=== PATIENT | male | born 1950 | race Caucasian/White ===

== ENCOUNTER → 2016-10-19 | Outpatient (CLI) | payer MEDICARE, MEDICAID ==
--- NOTE | 2016-10-25 08:57 | RSPPFT ---
DATE OF PROCEDURE: 10/19/16 COMMENTS: Spirometry shows FVC of 2.6 predicted 3.6, FEV1 of 1.1 predicted 2.8, FEV1/FVC ratio 41% predicted 80%. Post-bronchodilator FVC increases to 2.9 and FEV1 to 1.3. IMPRESSION: On the basis of the above, patient has an obstructive lung defect with responsiveness to acutely inhaled bronchodilator.
== END ==
LOC: HRSP 11:54
PROVIDERS: ATTEND Internal Medicine
DX: J44.9 Chronic obstructive pulmonary disease, unspecified (principal)
CPT/HCPCS: 94060

== ENCOUNTER 2017-11-24 10:39 | Inpatient (IN) ==
[2017-11-24 11:34] LABS: Baso % (Auto) 0.3 % (0.0-2.0); Eos # (Auto) 0.2 th/mm3 (0.0-0.4); Eos % (Auto) 1.7 % (0.0-4.0); Hematocrit 31.4 % (39.0-51.0); Hemoglobin 10.9 gm/dL (13.0-17.0); Lymph # (Auto) 0.7 th/mm3 (1.0-4.8); Lymph % (Auto) 6.6 % (9.0-44.0); Mean Corpuscular HGB Conc 34.8 % (32.0-36.0); Mean Corpuscular Hemoglobin 31.7 pg (27.0-34.0); Mean Platelet Volume 6.4 fL (7.0-11.0); Mono # (Auto) 1.1 th/mm3 (0.0-0.9); Mono % (Auto) 11.1 % (0.0-8.0); Neut # (Auto) 8.1 th/mm3 (1.8-7.7); Neut % (Auto) 80.3 % (16.0-70.0); Platelet Count 355 th/mm3 (150-450); Red Blood Count 3.45 mil/mm3 (4.50-5.90); White Blood Count 10.1 th/mm3 (4.0-11.0)
[2017-11-24 11:48] LABS: Activated Partial Thrombo Time 28.5 sec (24.3-30.1); Prothrombin Time 10.2 sec (9.8-11.6)
--- NOTE | 2017-11-24 11:49 | XR ---
EXAM DATE: 11/24/2017 10:56 AM EDT AGE/SEX: 67 years / Male INDICATIONS: . Shortness of breath. CLINICAL DATA: This is the patient's initial encounter. Patient reports that signs and symptoms have been present for 3 days and indicates a pain score of 0/10. MEDICAL/SURGICAL HISTORY: Hypertension. Carcinoma, prostatic. None. COMPARISON: [facility], XR CHEST PA AND LAT, 06/15/2017. . FINDINGS: Apparent mass infrahilar region on the right. Possible nodularity left upper lobe The heart and pulmonary vascularity are normal. Left seventh rib fracture. No pleural effusion. No pneumothorax. CONCLUSION: Abnormal chest. CT scan of the chest is suggested with contrast. Electronically signed by: Keyur Blevins MD 11/24/2017 11:48 AM EDT
[2017-11-24 11:56] LABS: Alanine Aminotransferase 22 U/L (12-78); Albumin 2.8 g/dL (3.4-5.0); Anion Gap 10 meq/L (5-15); Aspartate Aminotransferase 13 U/L (15-37); Blood Urea Nitrogen 11 mg/dL (7-18); Calcium 8.5 mg/dL (8.5-10.1); Carbon Dioxide 26.6 meq/L (21.0-32.0); Chloride 93 meq/L (98-107); Glomerular Filtration Rate Greater Than 89 mL/min (>89); Glucose,Random 101 mg/dL (74-106); Magnesium 2.1 mg/dL (1.5-2.5); Potassium 4.1 meq/L (3.5-5.1); Sodium 130 meq/L (136-145)
[2017-11-24 12:00] LABS: Alkaline Phosphatase 112 U/L (45-117); Total Protein 7.8 g/dL (6.4-8.2)
[2017-11-24 12:07] LABS: Creatine Kinase 38 U/L (39-308)
--- NOTE | 2017-11-24 14:34 | CT ---
EXAM DATE: 11/24/2017 1:37 PM EDT AGE/SEX: 67 years / Male INDICATIONS: Cough for eight weeks. CLINICAL DATA: This is the patient's initial encounter. Patient reports that signs and symptoms have been present for 2 months and indicates a pain score of 5/10. MEDICAL/SURGICAL HISTORY: Peripheral artery disease. Hypertension. Carcinoma, prostatic. None. RADIATION DOSE: 11.40 CTDI (mGy) COMPARISON: . TECHNIQUE: Volumetric scanning was performed using a multi-row detector CT scanner during bolus infu tierra of 75 ml Omnipaque 350 (iohexol) nonionic water-soluble contrast as a single exam dose. The valerio a was post processed with a variety of visualization algorithms including full volume maximum intensi ty projection and sliding thin slab reformation. Using automated exposure control and adjustment of t he mA and/or kV according to patient size, radiation dose was kept as low as reasonably achievable to obtain optimal diagnostic quality images. DICOM format image data is available electronically for r eview and comparison. FINDINGS: Study is abnormal in this patient with a history of carcinoma prostate. There is a 1.6 cm left apical lung mass medially adjacent this is 2 smaller 5 to 7 mm lung masses with pleural reaction in the lef t upper lobe. Smaller 5 to 7 mm nodules are seen in the lower lobes. On the right there is a dominant pleural-based 2.8 cm mass in the right upper lobe anteriorly. Scatte red nodules are seen in the right base. Review of bone windows reveals minimal sclerosis in the T4 or T5 vertebral body suspicious for metast atic disease. There is no axillary or mediastinal adenopathy. Large 3 cm left thyroid mass is noted. CONCLUSION: 1. Findings would be consistent with widespread metastatic disease, most likely prostate by history. Mass anteriorly in the right lung could easily be biopsied for pathology and origin with minimal ris k of pneumothorax. Electronically signed by: Keyur Blevins MD 11/24/2017 2:33 PM EDT
--- NOTE | 2017-11-24 14:56 | ECG ---
Date Performed: 11/24/2017 Time Performed: 11:47:03 PTAGE: 67 years EKG: Sinus rhythm INCOMPLETE RIGHT BUNDLE BRANCH BLOCK Nonspecific T wave changes. BORDERLINE ECG NO PREVIOUS TRACING DOCTOR: Fariba Rojas Interpretating Date/Time 11/24/2017 14:56:18
--- NOTE | 2017-11-24 15:51 | ED ---
HPI General Chief complaint: Weakness Stated complaint: Medical Time Seen by Provider: 11/24/17 10:40 Source: patient, EMS and old records reviewed Mode of arrival: EMS Limitations: no limitations History of Present Illness HPI Narrative: The patient is a 33-year-old male with history of prostate cancer , chemotherapy last treatment in mid October and radiation therapy, HTN and PAD, presenting with complaint of exertional dyspnea that has been getting worse for the past 8 weeks cough weakness and pain on left lower extremity. Patient states that he has been having problems talking the past 8 months and he is voice sounds hoarse. He admits to productive cough and today he had a slight hemoptysis. Also complained of left lower leg pain to the point that he was having difficulty walking. Patient states that he had a CT of his chest approximately 3 months ago and was told that everything looked okay. I was not able to find a previous CT of his chest within our system. Onset (ago): week(s) (8) Duration: progressively worsening Related Data Home Medications Medication Instructions Recorded Confirmed aspirin 325 mg PO DAILY 11/24/17 11/24/17 lisinopril-hydrochlorothiazide 1 tab PO DAILY 11/24/17 11/24/17 lorazepam 0.5 mg BUCCAL DAILY 11/24/17 11/24/17 metoprolol succinate 25 mg PO DAILY 11/24/17 11/24/17 umeclidinium-vilanterol [Anoro 1 inh INHALATION Q24H 11/24/17 11/24/17 Ellipta] Allergies Allergy/AdvReac Type Severity Reaction Status Date / Time No Known Allergies Allergy Verified 11/24/17 10:56 Review of Systems ROS: all other systems reviewed are negative Constitutional Reports anorexia, Reports fatigue, Denies fever(s), Reports poor appetite, Reports weakness and Reports weight loss Respiratory Denies chest congestion, Reports hemoptysis, Denies pain with cough, Reports dyspnea, Reports dyspnea on exertion and Denies wheezing [facility] Medical History Medical History History of chemotherapy (Acute) History of radiation therapy (Acute) Hypertension (Acute) PAD (peripheral artery disease) (Acute) Prostate cancer (Acute) Social History Social History Substance History: No History of Abuse Second Hand Smoke Exposure: No Smoking Status: Former smoker Tobacco Type: Cigarettes How Often Do You Have a Drink Containing Alcohol: Monthly or less Recent Travel in [facility] [[email or web address] within the Last 8 Weeks: No Recent Out of Country Travel within the Last 8 Weeks: No Immunization History Tetanus Immunization: Unsure Hx Influenza Vaccine This Season: No Exam Narrative Exam Narrative: GENERAL: Alert and oriented in no distress underweight unkept SKIN: Focused skin assessment warm/dry. Poor turgor venous stasis changes in lower extremities. HEAD: Atraumatic. Normocephalic. Bitemporal wasting EYES: Pupils equal and round. No scleral icterus. No injection or drainage. ENT: No nasal bleeding or discharge. Mucous membranes pink and moist. NECK: Trachea midline. No JVD. CARDIOVASCULAR: Regular rate and rhythm. No murmur appreciated. RESPIRATORY: No accessory muscle use. Clear to auscultation. Breath sounds equal bilaterally. GASTROINTESTINAL: Abdomen soft, non-tender, nondistended. Hepatic and splenic margins not palpable. MUSCULOSKELETAL: No obvious deformities. No clubbing. No cyanosis. No edema. Tenderness to palpation over the ventral aspect of the left foot. Pulses present but faint. Sensation intact. NEUROLOGICAL: Normal gait. Awake and alert. No obvious cranial nerve deficits. Motor grossly within normal limits. Normal speech. PSYCHIATRIC: Appropriate mood and affect; insight and judgment normal. Course Reevaluation(s) Reevaluation #1: Discussed chest x-ray findings with the patient we will going to obtain a CT angios to rule out pulmonary embolism versus metastatic disease. Time: 13:01 Reevaluation #2: Patient is resting comfortably requesting some coffee stable vitals O2 saturation 99% room air Time: 16:00 Consultations Consultation #1: Dr. Braga him educational therapist consulted and recommends admission for further evaluation of the patient's lung masses Time: 15:45 Initial Documented Vital Signs Pulse Rate 96 H 11/24/17 10:56 Last Documented Vital Signs Temperature 97.4 F L 11/24/17 10:59 Pulse Rate 94 H 11/24/17 17:00 Respiratory Rate 14 11/24/17 17:00 Blood Pressure 147/68 H 11/24/17 17:00 Pulse Oximetry 96 11/24/17 17:00 Medical Decision Making MDM Narrative Medical decision making narrative: Patient with several intrathoracic masses suggestive of metastatic disease from primary prostate cancer. Discuss with oncology that recommends admission for further evaluation of his symptoms. Medical Screen Exam Complete: Yes Emergency Medical Condition: Yes Medical Records Medical records reviewed: Yes I reviewed the patient's medical records. Lab Data Lab results reviewed: Yes I reviewed the patient's lab results. Result diagrams: 11/24/17 11:15 11/24/17 11:15 Lab Results 11/24/17 11/24/17 11/24/17 Range/Units 11:15 11:15 11:15 WBC 10.1 (4.0-11.0) th/mm3 RBC 3.45 L (4.50-5.90) mil/mm3 Hgb 10.9 L (13.0-17.0) gm/dL Hct 31.4 L (39.0-51.0) % MCV 91.0 (80.0-100.0) fL MCH 31.7 (27.0-34.0) pg MCHC 34.8 (32.0-36.0) % RDW 13.0 (11.6-17.2) % Plt Count 355 (150-450) th/mm3 MPV 6.4 L (7.0-11.0) fL Neut % (Auto) 80.3 H (16.0-70.0) % Lymph % (Auto) 6.6 L (9.0-44.0) % Jay % (Auto) 11.1 H (0.0-8.0) % Eos % (Auto) 1.7 (0.0-4.0) % Baso % (Auto) 0.3 (0.0-2.0) % Neut # (Auto) 8.1 H (1.8-7.7) th/mm3 Lymph # (Auto) 0.7 L (1.0-4.8) th/mm3 Jay # (Auto) 1.1 H (0.0-0.9) th/mm3 Eos # (Auto) 0.2 (0.0-0.4) th/mm3 Baso # (Auto) 0.0 (0.0-0.2) th/mm3 WBC Differential . Differential Comment Auto diff final PT 10.2 (9.8-11.6) sec INR 1.0 Ratio APTT 28.5 (24.3-30.1) sec Sodium 130 L (136-145) meq/L Potassium 4.1 (3.5-5.1) meq/L Chloride 93 L (98-107) meq/L Carbon Dioxide 26.6 (21.0-32.0) meq/L Anion Gap 10 (5-15) meq/L BUN 11 (7-18) mg/dL Creatinine 0.83 (0.60-1.30) mg/dL Estimated GFR Greater than 89 (>89) mL/min Random Glucose 101 (74-106) mg/dL Lactic Acid (0.4-2.0) mmol/L Calcium 8.5 (8.5-10.1) mg/dL Magnesium 2.1 (1.5-2.5) mg/dL Total Bilirubin 0.3 (0.2-1.0) mg/dL AST 13 L (15-37) U/L ALT 22 (12-78) U/L Alkaline Phosphatase 112 (45-117) U/L Total Creatine Kinase 38 L (39-308) U/L Troponin I Less than 0.02 L (0.02-0.05) ng/mL Total Protein 7.8 (6.4-8.2) g/dL Albumin 2.8 L (3.4-5.0) g/dL 11/24/17 Range/Units 11:15 WBC (4.0-11.0) th/mm3 RBC (4.50-5.90) mil/mm3 Hgb (13.0-17.0) gm/dL Hct (39.0-51.0) % MCV (80.0-100.0) fL MCH (27.0-34.0) pg MCHC (32.0-36.0) % RDW (11.6-17.2) % Plt Count (150-450) th/mm3 MPV (7.0-11.0) fL Neut % (Auto) (16.0-70.0) % Lymph % (Auto) (9.0-44.0) % Jay % (Auto) (0.0-8.0) % Eos % (Auto) (0.0-4.0) % Baso % (Auto) (0.0-2.0) % Neut # (Auto) (1.8-7.7) th/mm3 Lymph # (Auto) (1.0-4.8) th/mm3 Jay # (Auto) (0.0-0.9) th/mm3 Eos # (Auto) (0.0-0.4) th/mm3 Baso # (Auto) (0.0-0.2) th/mm3 WBC Differential Differential Comment PT (9.8-11.6) sec INR Ratio APTT (24.3-30.1) sec Sodium (136-145) meq/L Potassium (3.5-5.1) meq/L Chloride (98-107) meq/L Carbon Dioxide (21.0-32.0) meq/L Anion Gap (5-15) meq/L BUN (7-18) mg/dL Creatinine (0.60-1.30) mg/dL Estimated GFR (>89) mL/min Random Glucose (74-106) mg/dL Lactic Acid 1.4 (0.4-2.0) mmol/L Calcium (8.5-10.1) mg/dL Magnesium (1.5-2.5) mg/dL Total Bilirubin (0.2-1.0) mg/dL AST (15-37) U/L ALT (12-78) U/L Alkaline Phosphatase (45-117) U/L Total Creatine Kinase (39-308) U/L Troponin I (0.02-0.05) ng/mL Total Protein (6.4-8.2) g/dL Albumin (3.4-5.0) g/dL Imaging Data Radiologist's impression: Chest X-Ray 11/24/17 10:56 CONCLUSION: Abnormal chest. CT scan of the chest is suggested with contrast. Chest CTA 11/24/17 13:30 CONCLUSION: 1. Findings would be consistent with widespread metastatic disease, most likely prostate by history. Mass anteriorly in the right lung could easily be biopsied for pathology and origin with minimal risk of pneumothorax. ECG Data Attestation: I personally reviewed and interpreted this ECG as follows: Interpretation: Sinus rhythm incomplete right bundle branch block. Heart rate 86 bpm NC interval 133 ms, QTc [address]-T wave abnormalities. No signs of acute ischemia. Discharge Plan Discharge Disposition Patient Disposition: 30 Still Patient Discharge Condition Condition: Fair Discharge Details Diagnosis: Metastatic neoplastic disease, Prostate cancer, Dyspnea Physicians Team ED Provider: Jonathan Ferris Primary Care Provider: Keyur Saldana Attending Provider: Darlene Lee Other Providers: Yazmin Braga Discharge Interventions Interventions: ED Discharge Assessment Last Done: 11/24/17 18:01 Vital Signs Last Done: 11/24/17 14:00 Status ED Status: Left Department Discharge Information Discharge Date/Time: 11/24/17 18:04
[2017-11-24] MEDS ORDERED: Sod Chloride 0.9% Inj 1,000 ML IV.SIG ONE (16:00)
--- NOTE | 2017-11-24 16:45 | P.HPIM ---
History of Present Illness Primary Care Physician: Keyur Saldana DO Chief Complaint: Shortness of breath on exertion, hemoptysis History of Present Illness: This patient is a 67-year-old male with a diagnosis of hypertension prostate cancer diagnosed 8 weeks ago status post chemotherapy and radiation in October 2017. The patient also has peripheral arterial disease. He presented to our emergency department today with complaints of exertional dyspnea that has continued to get worse over the past 8 weeks. He also has a a cough with productive sputum. He has also been having on and off hemoptysis over the past week. His symptoms continue to get worse and he came into our emergency department today for evaluation. He has been having difficulty walking and hoarseness of his voice that started a couple of weeks ago. I was called by the emergency department physician to evaluate the patient for admission. A discussion with our oncologist was already made over the phone by the emergency department physician and suggested that we admit the patient. The patient denies any chest pain, no diarrhea, no abdominal pain, no fevers or chills. Past medical history hypertension, peripheral arterial disease, prostate cancer status post chemotherapy and radiation. Prostate cancer was diagnosed 8 weeks ago. Family history significant for breast cancer in his mother. Social history the patient has an extensive tobacco smoking history he is an active tobacco smoker. Allergies no known drug allergies Inpatient Certification: I certify that the inpatient services were ordered in accordance with Medicare regulations governing the order. This includes certification that hospital inpatient services are reasonable and necessary and in the case of services not specified as inpatient-only under 42 CFR 419.22(n), that they are appropriately provided as inpatient services in accordance to with the 2-midnight benchmark under 43 CFR 412.3(e) Estimated Total Length of Stay (Days): 3 Plans for Post Hospital Care: Home Review of Systems All other systems reviewed negative except as stated in HPI PMFSH - History History Provided By: Patient - Medical History Medical History: Medical History (Last Reviewed 11/24/17 @ 16:59 by Darlene Lee MD) History of chemotherapy History of radiation therapy Hypertension PAD (peripheral artery disease) Prostate cancer - Tobacco History Second Hand Smoke Exposure: No Tobacco Use In Past 30 Days: No Smoking Status: Former smoker Tobacco Type: Cigarettes - Alcohol History How Often Do You Have a Drink Containing Alcohol: Monthly or less - Substance Use History Substance History: No History of Abuse - Travel History Recent Travel in the [facility] Within the Last 8 Weeks: No Recent Travel Out of the Country Within the Last 8 Weeks: No - Immunization History Tetanus Immunization: Unsure Hx Influenza Vaccine This Season: No Medications and Allergies Allergies Allergy/AdvReac Type Severity Reaction Status Date / Time No Known Allergies Allergy Verified 11/24/17 10:56 Home Medications Medication Instructions Recorded Confirmed Type aspirin 325 mg PO DAILY 11/24/17 11/24/17 History lisinopril-hydrochlorothiazide 1 tab PO DAILY 11/24/17 11/24/17 History lorazepam 0.5 mg BUCCAL DAILY 11/24/17 11/24/17 History metoprolol succinate 25 mg PO DAILY 11/24/17 11/24/17 History umeclidinium-vilanterol [Anoro 1 inh INHALATION Q24H 11/24/17 11/24/17 History Ellipta] Exam Vital signs: Vital Signs 11/24/17 10:56 11/24/17 10:59 11/24/17 11:04 Temperature 97.4 F L Pulse Rate 96 H 96 H 94 H Respiratory Rate 16 18 Blood Pressure 152/72 H 143/71 H Pulse Oximetry 96 96 11/24/17 11:05 11/24/17 13:00 11/24/17 13:10 Temperature Pulse Rate 89 93 H Respiratory Rate 18 20 Blood Pressure 128/66 128/66 Pulse Oximetry 96 94 L 95 11/24/17 14:00 Temperature Pulse Rate 93 H Respiratory Rate 16 Blood Pressure 159/71 H Pulse Oximetry 99 Intake & Output 11/23/17 11/24/17 11/24/17 18:59 06:59 18:59 Weight 56.699 kg Narrative: General patient appears to be in mild distress. Complaining of shortness of breath on ambulation. HEENT extraocular movements are intact, clear oropharyngeal mucosa Cardiovascular S1-S2 audible, RRR, no murmurs rubs or gallops Respiratory poor inspiratory effort. Crackles auscultated on the right. Abdomen soft, nontender, nondistended, normal bowel sounds Extremities poor pulses palpated on bilateral feet. Neuro patient moves all 4 extremities sensation is intact bilaterally Results - Labs CBC & Chem 7: 11/24/17 11:15 11/24/17 11:15 Labs: Short CBC 11/24/17 Range/Units 11:15 WBC 10.1 (4.0-11.0) th/mm3 Hgb 10.9 L (13.0-17.0) gm/dL Hct 31.4 L (39.0-51.0) % Plt Count 355 (150-450) th/mm3 BMP 11/24/17 11:15 Sodium 130 L Potassium 4.1 Chloride 93 L Carbon Dioxide 26.6 BUN 11 Creatinine 0.83 Calcium 8.5 Cardiac Enzymes 11/24/17 Range/Units 11:15 Total Creatine Kinase 38 L (39-308) U/L Troponin I Less than 0.02 L (0.02-0.05) ng/mL Liver Function 11/24/17 Range/Units 11:15 Total Bilirubin 0.3 (0.2-1.0) mg/dL AST 13 L (15-37) U/L ALT 22 (12-78) U/L Alkaline Phosphatase 112 (45-117) U/L Albumin 2.8 L (3.4-5.0) g/dL - Imaging Impressions Chest X-Ray 11/24/17 10:56 CONCLUSION: Abnormal chest. CT scan of the chest is suggested with contrast. Chest CTA 11/24/17 13:30 CONCLUSION: 1. Findings would be consistent with widespread metastatic disease, most likely prostate by history. Mass anteriorly in the right lung could easily be biopsied for pathology and origin with minimal risk of pneumothorax. Caprini VTE Risk Assessment Caprini VTE Risk Assessment: Moderate/High Risk (score >= 2) VTE Pharmacological Exception Reason: Documented Caprini Risk Assessment Model: Point Value = 1 Point Value = 2 Point Value = 3 Point Value = 5 Age 41-60 Minor surgery BMI > 25 kg/m2 Swollen legs Varicose veins or History of unexplained or recurrent spontaneous Oral contraceptives or hormone replacement Sepsis (< 1 month) Serious lung disease, including pneumonia (< 1 month) Abnormal pulmonary function Acute myocardial infarction Congestive heart failure (< 1 month) History of inflammatory bowel disease Medical patient at bed rest Age 61-74 Arthroscopic surgery Major open surgery (> 45 min) Laparoscopic surgery (> 45 min) Malignancy Confined to bed (> 72 hours) Immobilizing plaster cast Central venous access Age >= 75 History of VTE Family history of VTE Factor V Leiden Prothrombin [id number] Lupus anticoagulant Anticardiolipin antibodies Elevated serum homocysteine Heparin-induced thrombocytopenia Other congenital or acquired thrombophilia Stroke (< 1 month) Elective arthroplasty Hip, pelvis, or leg fracture Acute spinal cord injury (< 1 month) Prophylaxis Regimen: Total Risk Factor Score Risk Level Prophylaxis Regimen 0-1 Low Early ambulation 2 Moderate Order ONE of the following: *Sequential Compression Device (SCD) *Heparin 5000 units SQ BID 3-4 Higher Order ONE of the following medications: *Heparin 5000 units SQ TID *Enoxaparin/Lovenox 40 mg SQ daily (WT < 150 kg, CrCl > 30 mL/min) *Enoxaparin/Lovenox 30 mg SQ daily (WT < 150 kg, CrCl > 10-29 mL/min) *Enoxaparin/Lovenox 30 mg SQ BID (WT < 150 kg, CrCl > 30 mL/min) AND/OR *Sequential Compression Device (SCD) 5 or more Highest Order ONE of the following medications: *Heparin 5000 units SQ TID (Preferred with Epidurals) *Enoxaparin/Lovenox 40 mg SQ daily (WT < 150 kg, CrCl > 30 mL/min) *Enoxaparin/Lovenox 30 mg SQ daily (WT < 150 kg, CrCl > 10-29 mL/min) *Enoxaparin/Lovenox 30 mg SQ BID (WT < 150 kg, CrCl > 30 mL/min) AND *Sequential Compression Device (SCD) Assessment and Plan - Plan This patient is a 67-year-old male with a diagnosis of hypertension prostate cancer diagnosed 8 weeks ago status post chemotherapy and radiation in October 2017. The patient also has peripheral arterial disease. He presented to our emergency department today with complaints of exertional dyspnea that has continued to get worse over the past 8 weeks. He also has a a cough with productive sputum. He has also been having on and off hemoptysis over the past week. His symptoms continue to get worse and he came into our emergency department today for evaluation. He has been having difficulty walking and hoarseness of his voice that started a couple of weeks ago. I was called by the emergency department physician to evaluate the patient for admission. A discussion with our oncologist was already made over the phone by the emergency department physician and suggested that we admit the patient. 1. Hemoptysis with right lung anterior mass likely metastatic prostate cancer. 2. Hyponatremia likely secondary to dehydration. The patient complains of shortness of breath on exertion. He is weak and appears dehydrated. He complains of some nausea however no vomiting. Patient will be given IV Zofran. He will be started on IV fluids. Oncology was already consulted by the emergency department physician. The patient will likely need a procedure to biopsy the mass. Interventional radiology will be consulted to evaluate the patient for the procedure. We will follow-up in a.m. renal panel. The patient took aspirin this morning and will not be restarted until after the procedure takes place possibly today. We will keep the patient n.p.o. until further notice. If the patient does not have the procedure done today he should be restarted on a diet. 3. Hypertension He will be continued on lisinopril and metoprolol. Pharmacotherapy will not be initiated for DVT prophylaxis as the patient currently has hemoptysis and will possibly undergo a procedure today. Given the patient's diagnosis of cancer he is at high risk of forming clots and if that procedure does not have been today then he should be started on pharmacotherapy for DVT prophylaxis with close monitoring due to his hemoptysis.
[2017-11-24] MEDS ORDERED: Sodium Chloride 0.9% 2 ML Flush PRN IV.FLUSH (17:07)
[2017-11-24] MEDS: Lisinopril 5 MG Tablet PO SCH (17:10)
[2017-11-24] MEDS ORDERED: Sod Chloride 0.9% Inj 1,000 ML IV.CONT SCH (17:15)
[2017-11-24] MEDS: Dextrose 5%/NaCl 0.9% Inj 1,000 ML IV.CONT SCH (17:29)
[2017-11-24 19:26] LABS: Prothrombin Time 10.4 sec (9.8-11.6)
--- NOTE | 2017-11-24 19:32 | MB ---
cc: Yazmin Braga MD DATE: 11/24/2017 CHIEF COMPLAINT: 1. History of prostate cancer. 2. Metastatic lung lesions suspicious for metastatic disease. HISTORY OF PRESENT ILLNESS: The patient is a 67-year-old gentleman with a history of locally advanced prostate cancer and peripheral arterial disease, who presented to the emergency room with a several month history of progressively worsening voice hoarseness, exertional dyspnea and shortness of breath. He also reported a cough with productive sputum and hemoptysis. He was recently diagnosed with prostate cancer and has been treated with radiation therapy and has been receiving androgen deprivation therapy under the direction of Dr. Soliman. A CT scan in the emergency department showed findings consistent with widespread metastatic disease. Also shown is a large 3 cm left thyroid mass and minimal sclerosis in the T4-T5 vertebral body which suspicious for metastatic disease. REVIEW OF SYSTEMS: As above in the HPI. All others negative. PAST MEDICAL HISTORY: 1. Peripheral arterial disease. 2. Hypertension. 3. Hyperlipidemia. SOCIAL HISTORY: He is a former smoker. He quit smoking approximately 1-2 months ago. He reports that he drank 2 mixed drinks per day. He stopped that approximately a month ago. He reports a poor support system in this area. ALLERGIES: NO KNOWN DRUG ALLERGIES. FAMILY HISTORY No known family history of malignancy HOME MEDICATIONS: Include: 1. Aspirin. 2. Lisinopril/hydrochlorothiazide combination tablet. 3. Lorazepam. 4. Metoprolol. 5. Anoro Ellipta inhaler. PHYSICAL EXAMINATION: VITAL SIGNS: Temperature 97.4, pulse 94, respiratory rate 18, blood pressure 143/71, pulse oximetry 96% on room air. GENERAL: Chronically ill-appearing man in no distress. HEAD: Normocephalic, atraumatic. EYES: PERRLA. EOMI. No scleral icterus. CARDIOVASCULAR: Regular rate and rhythm. No murmurs. RESPIRATORY: Bilateral coarse breath sounds. ABDOMEN: Soft, nontender, nondistended. Bowel sounds present. EXTREMITIES: No edema. NEUROLOGIC: Grossly nonfocal. PSYCHIATRIC: Appropriate mood and affect. LABORATORY STUDIES: Sodium 130, potassium 4.1, creatinine 0.83, total bilirubin 0.3, AST 13, ALT 22, alkaline phosphatase 112, total protein 7.8, albumin 2.8. Coags are within normal limits. White blood cell count 10.1, hemoglobin 10.9, platelet count 355,000. ASSESSMENT AND PLAN: 1. Lung lesions suspicious for metastatic cancer. A CT-guided biopsy has been ordered to be performed by our interventional radiology team. We will also perform a CT scan of the abdomen and pelvis and we will also order a bone scan. Will follow up results of PSA, TSH, Free T4 2. Suspicious lesion in thoracic spine. We will order an MRI of the spine for further evaluation. 3. Thyroid nodule. We will order a thyroid ultrasound for further evaluation. 4. Anemia. We will perform an anemia workup. Inpatient oncology service will continue to follow. MD MOUSTAPHA Morel/roxana , 07:03 PM , 07:11 PM NATHANIEL
[2017-11-24] MEDS ORDERED: Diatrizoate Meglum/Diatrizoate Sod Liq 9 ML UDC PO ONE (19:45)
[2017-11-24 19:54] LABS: % Iron Saturation 9.2 % (20-50); Folate 10.7 ng/mL (3.1-17.5); Free T4 (Free Thyroxine) 1.35 ng/dL (0.76-1.46); Thyroid Stimulating Hormone 0.939 uIU/mL (0.358-3.740)
[2017-11-24] MEDS: Sodium Chloride 0.9% 2 ML Flush BID IV.FLUSH SCH (21:36)
--- NOTE | 2017-11-24 23:09 | US ---
EXAM DATE: 11/24/2017 12:00 AM EDT AGE/SEX: 67 years / Male INDICATIONS: Mass seen on previous CT. CLINICAL DATA: This is the patient's initial encounter. Patient reports that signs and symptoms have been present for 2 days and indicates a pain score of 0/10. MEDICAL/SURGICAL HISTORY: Hypertension. Peripheral artery disease. Carcinoma, prostatic. Rad iation therapy. Chemotherapy. None. COMPARISON: [facility], CTA PULMONARY W CONTRAST W 3D, 11/24/2017. . MEASUREMENTS: Right Lobe: 2.1 x 3.7 x 1.9 cm Left Lobe: 1.9 x 4.7 x 1.6 cm FINDINGS: Right Lobe: Homogeneous echotexture without nodules or cysts. Vascularity is within normal limits. Left Lobe: A complex largely cystic mass is present in the lower aspect of the lobe measuring slightl y greater than 3 cm in oblong dimension. Slightly more superiorly, a mildly heterogeneous slightly almeida bcentimeter solid nodule is present. Isthmus: Normal in size without focal abnormality. Other: None. CONCLUSION: Left thyroid nodules. Electronically signed by: Aleks Portillo MD 11/24/2017 11:08 PM EDT
--- NOTE | 2017-11-25 00:15 | CT ---
EXAM DATE: 11/24/2017 11:36 PM EDT AGE/SEX: 67 years / Male INDICATIONS: Prostate cancer. Evaluate for metastatic disease. CLINICAL DATA: This is the patient's subsequent encounter. Patient reports that signs and symptoms h ave been present for 1 day and indicates a pain score of 5/10. MEDICAL/SURGICAL HISTORY: Carcinoma, prostatic. Hypertension. Peripheral artery disease. None . ORAL CONTRAST: Prescribed oral contrast ingested. RADIATION DOSE: 8.54 CTDI (mGy) COMPARISON: [facility], CT ABDOMEN AND PELVIS W AND W/O CONTRAST, 06/15/2015. . TECHNIQUE: Multiple contiguous axial images were obtained through the abdomen and pelvis following b olus infusion of 97 ml Omnipaque 350 (iohexol) nonionic water-soluble contrast as a single exam dos e. Prescribed oral contrast ingested. Using automated exposure control and adjustment of the mA and/ or kV according to patient size, radiation dose was kept as low as reasonably achievable to obtain op timal diagnostic quality images. DICOM format image data is available electronically for review and comparison. FINDINGS: Lower Lungs: Multiple bilateral lung base nodules are present, largest a 13 mm nodule in the lateral left lung base. Small left effusion. Liver: Several small low density lesions in the left lobe of the liver which were not present previou sly, presumably metastatic disease, largest approximately 15 mm. No evidence of biliary ductal dilata tion. Spleen: Homogeneous density without enlargement. Pancreas: Unremarkable without mass or calcification. Kidneys: Normal in size and shape. No evidence of mass or hydronephrosis. Adrenal Glands: 14 mm right adrenal nodule. Adrenals unremarkable. Aorta: Prominent atherosclerotic disease involving the abdominal aorta and branch vessels. No evide nce of aneurysm. Bowel/Mesentery: Prominent distal colonic diverticulosis. No abnormal dilatation of bowel. No inflam matory changes. Abdominal Wall: Intact. Retroperitoneum: No evidence of adenopathy in the retrocrural, para-aortic, or deep pelvic regions. Bladder: Contours are smooth. Reproductive Organs: Prostate fiducials Inguinal: The inguinal region is unremarkable without evidence of adenopathy. Bony Structures: Degenerative changes in the spine. No definite destructive findings. CONCLUSION: Lung base nodules bilaterally. Left lobe liver lesions. Right adrenal nodule Electronically signed by: Aleks Portillo MD 11/25/2017 12:14 AM EDT
[2017-11-25] MEDS: Dextrose 5%/NaCl 0.9% Inj 1,000 ML IV.CONT SCH ×2 (05:31→18:12)
[2017-11-25 06:56] LABS: Baso % (Auto) 0.4 % (0.0-2.0); Eos # (Auto) 0.1 th/mm3 (0.0-0.4); Eos % (Auto) 1.2 % (0.0-4.0); Hematocrit 27.8 % (39.0-51.0); Hemoglobin 9.7 gm/dL (13.0-17.0); Lymph # (Auto) 0.5 th/mm3 (1.0-4.8); Lymph % (Auto) 6.2 % (9.0-44.0); Mean Corpuscular HGB Conc 34.8 % (32.0-36.0); Mean Corpuscular Hemoglobin 31.9 pg (27.0-34.0); Mean Corpuscular Volume 91.5 fL (80.0-100.0); Mean Platelet Volume 6.1 fL (7.0-11.0); Mono # (Auto) 0.7 th/mm3 (0.0-0.9); Mono % (Auto) 9.7 % (0.0-8.0); Neut # (Auto) 6.2 th/mm3 (1.8-7.7); Neut % (Auto) 82.5 % (16.0-70.0); Platelet Count 332 th/mm3 (150-450); Red Blood Count 3.04 mil/mm3 (4.50-5.90); Red Cell Distribution Width 12.9 % (11.6-17.2); White Blood Count 7.5 th/mm3 (4.0-11.0)
[2017-11-25 07:34] LABS: Anion Gap 12 meq/L (5-15); Blood Urea Nitrogen 8 mg/dL (7-18); Calcium 8.5 mg/dL (8.5-10.1); Carbon Dioxide 23.9 meq/L (21.0-32.0); Chloride 97 meq/L (98-107); Glomerular Filtration Rate Greater Than 89 mL/min (>89); Glucose,Random 133 mg/dL (74-106); Potassium 3.9 meq/L (3.5-5.1); Sodium 133 meq/L (136-145)
[2017-11-25] MEDS: Sodium Chloride 0.9% 2 ML Flush BID IV.FLUSH SCH ×2 (09:14→20:37)
[2017-11-25] MEDS: Lisinopril 5 MG Tablet PO SCH (09:14)
[2017-11-25] MEDS ORDERED: Acetaminophen 325 MG Tablet PO PRN (09:30)
[2017-11-25] MEDS: LORazepam 0.5 MG Tablet PO PRN (09:54)
--- NOTE | 2017-11-25 10:19 | P.PNONC ---
Subjective Interval history: T-max 100.4 Patient voicing concerns that he will have to have another biopsy During my exam he goes off on a tangent talking about "they put a red gun to my butt" He seems to be talking about the radiation that he had previously and how he is positive that this is what caused his cancer to get worse States "they only did it to take my money" Difficult to ascertain if this is his baseline or if he has new altered mental status Objective Vital Signs/Intake & Output: Vital Signs 11/24/17 10:56 11/24/17 10:59 11/24/17 11:04 Temperature 97.4 F L Pulse Rate 96 H 96 H 94 H Respiratory Rate 16 18 Blood Pressure 152/72 H 143/71 H Pulse Oximetry 96 96 11/24/17 11:05 11/24/17 13:00 11/24/17 13:10 Temperature Pulse Rate 89 93 H Respiratory Rate 18 20 Blood Pressure 128/66 128/66 Pulse Oximetry 96 94 L 95 11/24/17 14:00 11/24/17 17:00 11/24/17 18:41 Temperature 99.2 F Pulse Rate 93 H 94 H 98 H Respiratory Rate 16 14 20 Blood Pressure 159/71 H 147/68 H 154/80 H Pulse Oximetry 99 96 100 11/24/17 18:42 11/24/17 20:03 11/24/17 20:51 Temperature 99.6 F Pulse Rate 99 H 107 H 108 H Respiratory Rate 20 Blood Pressure 125/72 Pulse Oximetry 98 11/24/17 22:05 11/24/17 23:26 11/25/17 00:03 Temperature 98.3 F Pulse Rate 95 H 99 H Respiratory Rate 18 20 Blood Pressure 129/69 Pulse Oximetry 97 11/25/17 04:05 11/25/17 05:00 11/25/17 07:32 Temperature 99.9 F H 100.4 F H Pulse Rate 105 H 105 H 110 H Respiratory Rate 20 18 Blood Pressure 120/62 121/63 Pulse Oximetry 96 98 11/25/17 08:00 Temperature Pulse Rate 108 H Respiratory Rate Blood Pressure Pulse Oximetry 98 Intake & Output 11/24/17 11/25/17 11/25/17 18:59 06:59 18:59 Intake Total 100 / 100 2380 / 2380 Balance 100 / 100 2380 / 2380 Weight 125 lb Intake: IV 100 / 100 1900 / 1900 D5W/Normal Saline Inj 1,000 ML 1000 / 1000 @ 100 mls/hr IV.CONT .Q10H [facility] Rx#:[id number] NS Inj 1,000 ML @ Wide Open IV. 100 / 100 900 / 900 SIG BOLUS ONE Rx#:[id number] Oral 480 / 480 Other: # Voids 4 Date of Last Bowel Movement 11/25/17 # Bowel Movements 4 Result Diagrams: 11/25/17 06:13 11/25/17 06:13 Laboratory Results: Laboratory Results - last 24 hr 11/24/17 11/24/17 11/24/17 11:15 11:15 11:15 WBC 10.1 RBC 3.45 L Hgb 10.9 L Hct 31.4 L MCV 91.0 MCH 31.7 MCHC 34.8 RDW 13.0 Plt Count 355 MPV 6.4 L Neut % (Auto) 80.3 H Lymph % (Auto) 6.6 L [place] % (Auto) 11.1 H Eos % (Auto) 1.7 Baso % (Auto) 0.3 Neut # (Auto) 8.1 H Lymph # (Auto) 0.7 L [place] # (Auto) 1.1 H Eos # (Auto) 0.2 Baso # (Auto) 0.0 WBC Differential . Differential Comment Auto diff final PT 10.2 INR 1.0 APTT 28.5 Sodium 130 L Potassium 4.1 Chloride 93 L Carbon Dioxide 26.6 Anion Gap 10 BUN 11 Creatinine 0.83 Estimated GFR Greater than 89 Random Glucose 101 Lactic Acid Calcium 8.5 Magnesium 2.1 Iron TIBC % Saturation Ferritin Total Bilirubin 0.3 AST 13 L ALT 22 Alkaline Phosphatase 112 Total Creatine Kinase 38 L Troponin I Less than 0.02 L Total Protein 7.8 Albumin 2.8 L Vitamin B12 Folate TSH Free T4 11/24/17 11/24/17 11/24/17 11:15 11:15 18:59 WBC RBC Hgb Hct MCV MCH MCHC RDW Plt Count MPV Neut % (Auto) Lymph % (Auto) [place] % (Auto) Eos % (Auto) Baso % (Auto) Neut # (Auto) Lymph # (Auto) [place] # (Auto) Eos # (Auto) Baso # (Auto) WBC Differential Differential Comment PT 10.4 INR 1.0 APTT Sodium Potassium Chloride Carbon Dioxide Anion Gap BUN Creatinine Estimated GFR Random Glucose Lactic Acid 1.4 Calcium Magnesium Iron 29 L TIBC 314 % Saturation 9.2 L Ferritin 513 H Total Bilirubin AST ALT Alkaline Phosphatase Total Creatine Kinase Troponin I Total Protein Albumin Vitamin B12 681 Folate 10.7 TSH 0.939 Free T4 1.35 11/25/17 11/25/17 06:13 06:13 WBC 7.5 RBC 3.04 L Hgb 9.7 L Hct 27.8 L MCV 91.5 MCH 31.9 MCHC 34.8 RDW 12.9 Plt Count 332 MPV 6.1 L Neut % (Auto) 82.5 H Lymph % (Auto) 6.2 L [place] % (Auto) 9.7 H Eos % (Auto) 1.2 Baso % (Auto) 0.4 Neut # (Auto) 6.2 Lymph # (Auto) 0.5 L [place] # (Auto) 0.7 Eos # (Auto) 0.1 Baso # (Auto) 0.0 WBC Differential . Differential Comment Auto diff final PT INR APTT Sodium 133 L Potassium 3.9 Chloride 97 L Carbon Dioxide 23.9 Anion Gap 12 BUN 8 Creatinine 0.75 Estimated GFR Greater than 89 Random Glucose 133 H Lactic Acid Calcium 8.5 Magnesium 2.0 Iron TIBC % Saturation Ferritin Total Bilirubin AST ALT Alkaline Phosphatase Total Creatine Kinase Troponin I Total Protein Albumin Vitamin B12 Folate TSH Free T4 Culture Results: Microbiology 11/24/17 20:20 Gram Stain - Final Sputum - Expectorated Sputum 11/24/17 11:16 Influenza Types A,B Antigen - Final Nasal Aspirate Negative for FLU A and B antigen Infection due to influenza A or B cannot be ruled out since the antigen present in the sample may be below the detection limit of the test. Imaging Studies: Impressions Abdomen/Pelvis CT 11/24/17 00:00 CONCLUSION: Lung base nodules bilaterally. Left lobe liver lesions. Right adrenal nodule Thyroid Ultrasound 11/24/17 00:00 CONCLUSION: Left thyroid nodules. Chest X-Ray 11/24/17 10:56 CONCLUSION: Abnormal chest. CT scan of the chest is suggested with contrast. Chest CTA 11/24/17 13:30 CONCLUSION: 1. Findings would be consistent with widespread metastatic disease, most likely prostate by history. Mass anteriorly in the right lung could easily be biopsied for pathology and origin with minimal risk of pneumothorax. Medications: Active Medications Generic Name Dose Route Start Last Admin Trade Name Freq PRN Reason Stop Dose Admin Hydrocodone Bitart/Acetaminophen 1 tab 11/25/17 09:29 11/25/17 09:54 [place] 5/325 PO 1 tab Q4H PRN Administration pain 3-5 Dextrose/Sodium Chloride 1,000 mls @ 100 mls/hr 11/24/17 17:30 11/25/17 05:31 D5w/Normal Saline Inj IV.CONT 100 mls/hr .Q10H JULI Administration Lisinopril 5 mg 11/24/17 17:15 11/25/17 09:14 Prinivil PO 5 mg DAILY JULI Administration Lorazepam 0.5 mg 11/25/17 09:31 11/25/17 09:54 Ativan PO 0.5 mg Q12H PRN Administration ANXIETY Metoprolol Succinate 25 mg 11/24/17 17:15 11/25/17 09:14 Toprol Xl PO 25 mg DAILY JULI Administration Sodium Chloride 2 ml 11/24/17 21:00 11/25/17 09:14 Ns Flush IV.FLUSH Not Given BID JULI Objective Remarks: GENERAL: Thin older male resting in bed in no obvious distress SKIN: Warm and dry. HEAD: Normocephalic. + Halitosis EYES: No scleral icterus. No injection or drainage. NECK: Supple, trachea midline. No JVD or lymphadenopathy. CARDIOVASCULAR: Regular rate and rhythm without murmurs. Tachycardic. RESPIRATORY: Lung marcos diminished. Breathing unlabored at rest. GASTROINTESTINAL: Abdomen soft, non-tender, nondistended. EXTREMITIES: No cyanosis, or edema. MUSCULOSKELETAL: Adequate muscle tone. NEUROLOGICAL: Awake and alert. Confused. Assessment/Plan - Plan 67-year-old male with history of advanced prostate cancer and peripheral arterial disease who presents to the emergency room complaining of a several month history of progressive hoarseness, exertional dyspnea and shortness of breath. CT scan showed findings consistent with widespread metastatic disease. 1. Await MRI of thoracic spine and bone scan. 2. CT-guided biopsy has already been ordered for lung lesion. 3. Monitor patient's neuro status. He appears to be somewhat confused however I am not sure if this is his baseline. - Attending Statement The exam, history, and the medical decision-making described in the above note were completed with the assistance of the mid-level provider. I reviewed and agree with the findings presented. I attest that I had a [id number] encounter with the patient on the same day, and personally performed and documented my assessment and findings in the medical record. 67 yoM resting in bed. He is upset with the fact that the nurse brought a portable toilet into his room. He also is upset that the biopsy cannot be performed sooner. He states that the only cancer treatment that he wants is to mix the cancer cells with his immune cells and to have the immune cells kill his cancer. He reports "there are ways to get things done in the hospital without doctors." He reports that the radiation caused his cancer to spread throughout his body. Thyroid ultrasoun with thyroid nodules, MRI with indeterminate T3, T10 lesions, CTA with liver lesions. Await bone scan and results of CT guided biopsy.
--- NOTE | 2017-11-25 10:20 | P.PNIM ---
Subjective Interval history: The patient was resting in bed. He said he has chest pain every time he coughs. He does not have any mucus production at this time. He does endorse anxiety. He says he recently had diarrhea. Discussed with nursing. Physical Exam Vital signs: Vital Signs 11/24/17 10:56 11/24/17 10:59 11/24/17 11:04 Temperature 97.4 F L Pulse Rate 96 H 96 H 94 H Respiratory Rate 16 18 Blood Pressure 152/72 H 143/71 H Pulse Oximetry 96 96 11/24/17 11:05 11/24/17 13:00 11/24/17 13:10 Temperature Pulse Rate 89 93 H Respiratory Rate 18 20 Blood Pressure 128/66 128/66 Pulse Oximetry 96 94 L 95 11/24/17 14:00 11/24/17 17:00 11/24/17 18:41 Temperature 99.2 F Pulse Rate 93 H 94 H 98 H Respiratory Rate 16 14 20 Blood Pressure 159/71 H 147/68 H 154/80 H Pulse Oximetry 99 96 100 11/24/17 18:42 11/24/17 20:03 11/24/17 20:51 Temperature 99.6 F Pulse Rate 99 H 107 H 108 H Respiratory Rate 20 Blood Pressure 125/72 Pulse Oximetry 98 11/24/17 22:05 11/24/17 23:26 11/25/17 00:03 Temperature 98.3 F Pulse Rate 95 H 99 H Respiratory Rate 18 20 Blood Pressure 129/69 Pulse Oximetry 97 11/25/17 04:05 11/25/17 05:00 11/25/17 07:32 Temperature 99.9 F H 100.4 F H Pulse Rate 105 H 105 H 110 H Respiratory Rate 20 18 Blood Pressure 120/62 121/63 Pulse Oximetry 96 98 11/25/17 08:00 Temperature Pulse Rate 108 H Respiratory Rate Blood Pressure Pulse Oximetry 98 Intake & Output 11/24/17 11/25/17 11/25/17 18:59 06:59 18:59 Intake Total 100 / 100 2380 / 2380 Balance 100 / 100 2380 / 2380 Weight 56.699 kg Intake: IV 100 / 100 1900 / 1900 D5W/Normal Saline Inj 1,000 ML 1000 / 1000 @ 100 mls/hr IV.CONT .Q10H [facility] Rx#:[id number] NS Inj 1,000 ML @ Wide Open IV. 100 / 100 900 / 900 SIG BOLUS ONE Rx#:[id number] Oral 480 / 480 Other: # Voids 4 Date of Last Bowel Movement 11/25/17 # Bowel Movements 4 Narrative: General: NAD HEENT: extraocular movements are intact, clear oropharyngeal mucosa Cardiovascular: S1-S2 audible, RRR, no murmurs rubs or gallops Respiratory: poor inspiratory effort, scattered rhonchi Abdomen: soft, nontender, nondistended, normal bowel sounds Extremities: no edema Neuro: patient moves all 4 extremities, sensation is intact bilaterally Results - Labs CBC & Chem 7: 11/25/17 06:13 11/25/17 06:13 Laboratory Results - last 24 hr 11/24/17 11/24/17 11/24/17 11:15 11:15 11:15 WBC 10.1 RBC 3.45 L Hgb 10.9 L Hct 31.4 L MCV 91.0 MCH 31.7 MCHC 34.8 RDW 13.0 Plt Count 355 MPV 6.4 L Neut % (Auto) 80.3 H Lymph % (Auto) 6.6 L [place] % (Auto) 11.1 H Eos % (Auto) 1.7 Baso % (Auto) 0.3 Neut # (Auto) 8.1 H Lymph # (Auto) 0.7 L [place] # (Auto) 1.1 H Eos # (Auto) 0.2 Baso # (Auto) 0.0 WBC Differential . Differential Comment Auto diff final PT 10.2 INR 1.0 APTT 28.5 Sodium 130 L Potassium 4.1 Chloride 93 L Carbon Dioxide 26.6 Anion Gap 10 BUN 11 Creatinine 0.83 Estimated GFR Greater than 89 Random Glucose 101 Lactic Acid Calcium 8.5 Magnesium 2.1 Iron TIBC % Saturation Ferritin Total Bilirubin 0.3 AST 13 L ALT 22 Alkaline Phosphatase 112 Total Creatine Kinase 38 L Troponin I Less than 0.02 L Total Protein 7.8 Albumin 2.8 L Vitamin B12 Folate TSH Free T4 11/24/17 11/24/17 11/24/17 11:15 11:15 18:59 WBC RBC Hgb Hct MCV MCH MCHC RDW Plt Count MPV Neut % (Auto) Lymph % (Auto) [place] % (Auto) Eos % (Auto) Baso % (Auto) Neut # (Auto) Lymph # (Auto) [place] # (Auto) Eos # (Auto) Baso # (Auto) WBC Differential Differential Comment PT 10.4 INR 1.0 APTT Sodium Potassium Chloride Carbon Dioxide Anion Gap BUN Creatinine Estimated GFR Random Glucose Lactic Acid 1.4 Calcium Magnesium Iron 29 L TIBC 314 % Saturation 9.2 L Ferritin 513 H Total Bilirubin AST ALT Alkaline Phosphatase Total Creatine Kinase Troponin I Total Protein Albumin Vitamin B12 681 Folate 10.7 TSH 0.939 Free T4 1.35 11/25/17 11/25/17 06:13 06:13 WBC 7.5 RBC 3.04 L Hgb 9.7 L Hct 27.8 L MCV 91.5 MCH 31.9 MCHC 34.8 RDW 12.9 Plt Count 332 MPV 6.1 L Neut % (Auto) 82.5 H Lymph % (Auto) 6.2 L [place] % (Auto) 9.7 H Eos % (Auto) 1.2 Baso % (Auto) 0.4 Neut # (Auto) 6.2 Lymph # (Auto) 0.5 L [place] # (Auto) 0.7 Eos # (Auto) 0.1 Baso # (Auto) 0.0 WBC Differential . Differential Comment Auto diff final PT INR APTT Sodium 133 L Potassium 3.9 Chloride 97 L Carbon Dioxide 23.9 Anion Gap 12 BUN 8 Creatinine 0.75 Estimated GFR Greater than 89 Random Glucose 133 H Lactic Acid Calcium 8.5 Magnesium 2.0 Iron TIBC % Saturation Ferritin Total Bilirubin AST ALT Alkaline Phosphatase Total Creatine Kinase Troponin I Total Protein Albumin Vitamin B12 Folate TSH Free T4 Microbiology 11/24/17 20:20 Sputum - Expectorated Sputum Gram Stain - Final 11/24/17 11:16 Nasal Aspirate Influenza Types A,B Antigen - Final Negative for FLU A and B antigen Infection due to influenza A or B cannot be ruled out since the antigen present in the sample may be below the detection limit of the test. - Imaging Impressions Abdomen/Pelvis CT 11/24/17 00:00 CONCLUSION: Lung base nodules bilaterally. Left lobe liver lesions. Right adrenal nodule Thyroid Ultrasound 11/24/17 00:00 CONCLUSION: Left thyroid nodules. Chest X-Ray 11/24/17 10:56 CONCLUSION: Abnormal chest. CT scan of the chest is suggested with contrast. Chest CTA 11/24/17 13:30 CONCLUSION: 1. Findings would be consistent with widespread metastatic disease, most likely prostate by history. Mass anteriorly in the right lung could easily be biopsied for pathology and origin with minimal risk of pneumothorax. Assessment and Plan - Plan Hemoptysis/ Metastatic prostate cancer/ Weakness This patient is a 67-year-old male with a diagnosis of prostate cancer diagnosed 8 weeks ago status post chemotherapy and radiation in October 2017. He has been having on and off hemoptysis over the past week. CT of the chest suggestive of metastatic disease. CT abdomen with left lobe liver lesions. -Oncology consult appreciated. Work-up in progress. -holding ASA for lung mass biopsy. Low grade fever Possibly s/t post-obstructive pneumonia. -start IV Levaquin. -follow culture results. -oxygen and nebs as needed. Chest pain S/t above. EKG with incomplete RBBB. Troponin was negative. -pain control. -treatment as above. Hyponatremia S/t decreased PO intake. -IVFs. -ADAT. -hold HCTZ. Hypertension Well controlled. -He will be continued on lisinopril and metoprolol. -hold HCTZ. Pharmacotherapy will not be initiated for DVT prophylaxis as the patient currently has hemoptysis and will possibly undergo a procedure today.
[2017-11-25] MEDS ORDERED: Gadobutrol PF 2 MMOL/2 ML Vial (for RAD) IV.SIG ONE (10:32)
--- NOTE | 2017-11-25 10:47 | MR ---
EXAM DATE: 11/25/2017 9:51 AM EDT AGE/SEX: 67 years / Male INDICATIONS: . Possible metastatic disease. CLINICAL DATA: This is the patient's initial encounter. Patient reports that signs and symptoms have been present for 2 days and indicates a pain score of 3/10. MEDICAL/SURGICAL HISTORY: Carcinoma, prostatic. Hypertension. Peripheral artery disease. Ingu inal hernia repair. COMPARISON: . TECHNIQUE: Multiplanar, multisequence MRI of the thoracic spine was performed without and with 6 ml Gadavist (gadobutrol) contrast as a single exam dose. FINDINGS: Vertebrae: The thoracic vertebral bodies are normal in height. There is a 0.6 cm area of increased s ignal seen within the T10 vertebral body. There is also a 1 cm mass in the right pars interarticulari s region at T8. Alignment: Normal. Cord: Normal position and configuration. Post Contrast: No abnormal areas of enhancement are seen in the cord, dural or paraspinal regions. Other: There is a 3 cm cyst at the left thyroid gland. There is a mild left pleural effusion. T1-T2: The thecal sac has a normal diameter. No evidence of disc bulge or protrusion. T2-T3: The thecal sac has a normal diameter. No evidence of disc bulge or protrusion. T3-T4: The thecal sac has a normal diameter. No evidence of disc bulge or protrusion. T4-T5: The thecal sac has a normal diameter. No evidence of disc bulge or protrusion. T5-T6: The thecal sac has a normal diameter. No evidence of disc bulge or protrusion. T6-T7: The thecal sac has a normal diameter. No evidence of disc bulge or protrusion. T7-T8: The thecal sac has a normal diameter. No evidence of disc bulge or protrusion. T8-T9: The thecal sac has a normal diameter. No evidence of disc bulge or protrusion. T9-T10: The thecal sac has a normal diameter. No evidence of disc bulge or protrusion. T10-T11: The thecal sac has a normal diameter. No evidence of disc bulge or protrusion. T11-T12: The thecal sac has a normal diameter. No evidence of disc bulge or protrusion. T12-L1: The thecal sac has a normal diameter. No evidence of disc bulge or protrusion. CONCLUSION: 1. Nonspecific small focal lesions at the T10 body and the right T8 pars interarticularis region. Th belle could represent metastatic lesions. 2. Disc spaces are intact. No significant areas of stenosis is seen. 3. Mild left pleural effusion. Electronically signed by: Aleks Barlow MD 11/25/2017 10:46 AM EDT
[2017-11-26] MEDS: Dextrose 5%/NaCl 0.9% Inj 1,000 ML IV.CONT SCH ×3 (04:19→21:38)
[2017-11-26] MEDS: LORazepam 0.5 MG Tablet PO PRN ×2 (06:37→19:42)
[2017-11-26] MEDS: Lisinopril 5 MG Tablet PO SCH (09:15)
[2017-11-26] MEDS: Sodium Chloride 0.9% 2 ML Flush BID IV.FLUSH SCH ×2 (09:15→21:39)
[2017-11-26] MEDS ORDERED: Acetaminophen/Codeine 300/30 MG Tablet PO PRN (10:21)
--- NOTE | 2017-11-26 10:29 | P.PNIM ---
Subjective Interval history: The patient said that he was no longer interested in a lung biopsy. He said that he would like to go home. When asked about hospice he did show interest. He says his pain medications are making him itchy and he would prefer Tylenol 3. Physical Exam Vital signs: Vital Signs 11/25/17 11:28 11/25/17 12:00 11/25/17 15:39 Temperature 99.1 F 98.0 F Pulse Rate 98 H 110 H 108 H Respiratory Rate 20 18 Blood Pressure 104/57 L 130/68 Pulse Oximetry 95 98 11/25/17 16:00 11/25/17 19:38 11/25/17 19:51 Temperature 99.3 F Pulse Rate 103 H 116 H Respiratory Rate 20 20 Blood Pressure 148/81 H Pulse Oximetry 96 11/25/17 20:04 11/25/17 20:21 11/26/17 00:00 Temperature 98.3 F Pulse Rate 106 H 105 H Respiratory Rate 18 20 Blood Pressure 126/69 Pulse Oximetry 97 11/26/17 00:04 11/26/17 00:06 11/26/17 00:36 Temperature Pulse Rate 105 H Respiratory Rate 20 16 Blood Pressure Pulse Oximetry 11/26/17 04:09 11/26/17 04:35 11/26/17 05:10 Temperature 98.2 F Pulse Rate 119 H 111 H 109 H Respiratory Rate 21 20 Blood Pressure 140/75 137/73 Pulse Oximetry 95 97 11/26/17 06:33 11/26/17 07:03 11/26/17 07:10 Temperature 97.9 F Pulse Rate 112 H Respiratory Rate 18 16 20 Blood Pressure 126/67 Pulse Oximetry 96 11/26/17 07:57 11/26/17 08:00 Temperature 97.9 F Pulse Rate 112 H 107 H Respiratory Rate 20 Blood Pressure 126/67 Pulse Oximetry 96 96 Intake & Output 11/25/17 11/26/17 11/26/17 18:59 06:59 18:59 Intake Total 2310 / 2310 1240 / 1240 Output Total 125 / 125 Balance 2310 / 2310 1115 / 1115 Weight 62.3 kg Intake: IV 1150 / 1150 1000 / 1000 D5W/Normal Saline Inj 1,000 ML 1000 / 1000 1000 / 1000 @ 100 mls/hr IV.CONT .Q10H [facility] Rx#:[id number] Levaquin 750 mg Premix Inj 150 150 / 150 ML @ 100 mls/hr IV.SIG Q24H [facility] Rx#:[id number] Oral 1160 / 1160 240 / 240 Output: Urine 125 / 125 Other: # Voids 4 2 Date of Last Bowel Movement 11/25/17 11/25/17 11/25/17 Narrative: General: NAD. HEENT: extraocular movements are intact, clear oropharyngeal mucosa. Cardiovascular: S1-S2 audible, RRR, no murmurs rubs or gallops. Respiratory: poor inspiratory effort, scattered rhonchi. Abdomen: soft, nontender, nondistended, normal bowel sounds. Extremities: no edema. Neuro: patient moves all 4 extremities, sensation is intact bilaterally. Psych: Teary-eyed. Results - Labs CBC & Chem 7: 11/25/17 06:13 11/25/17 06:13 Microbiology 11/24/17 11:15 Blood - Peripheral Aerobic Blood Culture - Preliminary No growth in 1 day 11/24/17 11:15 Blood - Peripheral Anaerobic Blood Culture - Preliminary No growth in 1 day 11/24/17 11:20 Blood - Peripheral Aerobic Blood Culture - Preliminary No growth in 1 day 11/24/17 11:20 Blood - Peripheral Anaerobic Blood Culture - Preliminary No growth in 1 day 11/24/17 20:20 Sputum - Expectorated Sputum Gram Stain - Final 11/24/17 20:20 Sputum - Expectorated Sputum Sputum Culture - Preliminary Immature growth - reincubate - Imaging Impressions Thoracic Spine MRI 11/25/17 00:00 CONCLUSION: 1. Nonspecific small focal lesions at the T10 body and the right T8 pars interarticularis region. These could represent metastatic lesions. 2. Disc spaces are intact. No significant areas of stenosis is seen. 3. Mild left pleural effusion. Assessment and Plan - Plan Hemoptysis/ Metastatic prostate cancer/ Weakness This patient is a 67-year-old male with a diagnosis of prostate cancer diagnosed 8 weeks ago status post chemotherapy and radiation in October 2017. He has been having on and off hemoptysis over the past week. CT of the chest suggestive of metastatic disease. CT abdomen with left lobe liver lesions. -Oncology consult appreciated. -pt indicated that he does not want further work-up and is interested in hospice. Hospice and case management consults have been placed. -pain control. Low grade fever Possibly s/t post-obstructive pneumonia. -continue IV Levaquin. -follow culture results. -oxygen and nebs as needed. Chest pain S/t above. EKG with incomplete RBBB. Troponin was negative. -pain control. -treatment as above. Hyponatremia S/t decreased PO intake. -IVFs. -ADAT. -hold HCTZ. Hypertension Well controlled. -He will be continued on lisinopril and metoprolol. -hold HCTZ. PPx: SCDs Discharge Planning: Await hospice consult
[2017-11-26] MEDS: Acetaminophen/Codeine 300/30 MG Tablet PO PRN (17:57)
[2017-11-26] MEDS ORDERED: MethylPREDNISolone Sod Succinate Inj 125 MG/2 ML Vial IV.PUSH ONE (23:13)
[2017-11-26] MEDS ORDERED: Famotidine PF Inj 20 MG/2 ML Vial IV.PUSH ONE (23:14)
[2017-11-26 23:59] LABS: ABG Base Excess -1.6 mmol/L (-2-2); ABG PCO2 32 mmHg (38-42); ABG PO2 58 mmHG (61-120)
--- NOTE | 2017-11-27 00:26 | XR ---
EXAM DATE: 11/26/2017 12:00 AM EDT AGE/SEX: 67 years / Male INDICATIONS: Shortness of breath. CLINICAL DATA: This is the patient's subsequent encounter. Patient reports that signs and symptoms h ave been present for 3 days and indicates a pain score of 0/10. MEDICAL/SURGICAL HISTORY: Carcinoma, prostatic. Hypertension. Peripheral vascular disease. In guinal hernia repair. COMPARISON: [facility], XR CHEST PA AND LAT, 06/15/2017. [facility], CTA PULMONARY W CONTRAST W 3D, 11/24/2017. . FINDINGS: Portable AP view of the chest demonstrates a normal-sized cardiac silhouette. There is a 2 cm nodular opacity in the left upper lobe correlating with a nodule identified on prior CT. There is increased interstitial and airspace opacity in the left upper and left lower lung zones with suspected left ple ural-based opacity. Opacity also overlies the right hilar region similar to the prior CT. This likely correlates with a nodule visualized in the right midlung zone. The bones and soft tissues demonstrat e no acute abnormality. CONCLUSION: 1. Increased interstitial and airspace opacities in the left upper and left lower lung zone and susp ected increased volume of the left pleural effusion. 2. Persistent left upper lobe and right midlung pulmonary nodules suspicious for metastatic disease. Electronically signed by: Aleks Jiang MD 11/27/2017 12:25 AM EDT
[2017-11-27] MEDS: Acetaminophen/Codeine 300/30 MG Tablet PO PRN ×3 (01:32→20:55)
[2017-11-27] MEDS: Dextrose 5%/NaCl 0.9% Inj 1,000 ML IV.CONT SCH ×2 (01:38→09:43)
[2017-11-27 06:28] LABS: Baso % (Auto) 0.2 % (0.0-2.0); Eos % (Auto) 0.1 % (0.0-4.0); Hematocrit 26.1 % (39.0-51.0); Hemoglobin 8.8 gm/dL (13.0-17.0); Lymph # (Auto) 0.2 th/mm3 (1.0-4.8); Lymph % (Auto) 2.7 % (9.0-44.0); Mean Corpuscular HGB Conc 33.8 % (32.0-36.0); Mean Corpuscular Hemoglobin 31.6 pg (27.0-34.0); Mean Corpuscular Volume 93.5 fL (80.0-100.0); Mean Platelet Volume 6.2 fL (7.0-11.0); Mono # (Auto) 0.1 th/mm3 (0.0-0.9); Mono % (Auto) 1.7 % (0.0-8.0); Neut # (Auto) 7.5 th/mm3 (1.8-7.7); Neut % (Auto) 95.3 % (16.0-70.0); Platelet Count 310 th/mm3 (150-450); Red Blood Count 2.79 mil/mm3 (4.50-5.90); White Blood Count 7.8 th/mm3 (4.0-11.0)
[2017-11-27 06:50] LABS: Albumin 2.1 g/dL (3.4-5.0); Calcium 7.8 mg/dL (8.5-10.1); Carbon Dioxide 21.1 meq/L (21.0-32.0); Magnesium 2.1 mg/dL (1.5-2.5); Phosphorus 2.7 mg/dL (2.5-4.9); Potassium 4.1 meq/L (3.5-5.1); Total Protein 6.1 g/dL (6.4-8.2)
[2017-11-27] MEDS: LORazepam 0.5 MG Tablet PO PRN ×2 (09:42→22:13)
[2017-11-27] MEDS: Sodium Chloride 0.9% 2 ML Flush BID IV.FLUSH SCH ×2 (09:42→21:27)
[2017-11-27] MEDS: Lisinopril 5 MG Tablet PO SCH (09:42)
--- NOTE | 2017-11-27 14:58 | NM ---
INDICATIONS: Metastatic prostate cancer. Right hip pain. Right anterior rib pain. CLINICAL DATA: This is the patient's initial encounter. Patient reports that signs and symptoms have been present for 1 day and indicates a pain score of 2/10. MEDICAL/SURGICAL HISTORY: Hypertension. None. COMPARISON: MRI thoracic spine 11/25/2017, CTA pulmonary 11/24/2017. TECHNIQUE: . . Whole body bone scan was performed at 2-3 hours. Correlative bone scan available for comparison; DOSE: 32.1 mCi Tc99m MDP IV FINDINGS: Whole body bone scan demonstrates no suspicious uptake in the axial or appendicular skeleton to sugge st metastatic disease. A focal area of increased uptake is seen involving the posterior lateral aspec ts of the left seventh rib which when correlated to prior CTA correlates to a prior fracture of the r ib. No abnormal activity seen within the thoracic spine to correlate to the questionable lesion seen on the MRI. No photopenic defects observed. Degenerative changes are noted involving the shoulders bi laterally. Activity seen about the right AC felt to relate to spillage of the radiopharmaceutical.. CONCLUSION: 1. No abnormality observed to suggest metastatic disease to the bone. 2. Subacute left posterior seventh rib fracture. Electronically signed by: Alireza Aguilar MD 11/27/2017 2:57 PM EDT
--- NOTE | 2017-11-27 15:35 | P.PNIM ---
Subjective Interval history: The patient said that he talked with hospice yesterday. He says his sister is coming to visit him. He still does not want the biopsy. Discussed with nursing and oncology. Physical Exam Vital signs: Vital Signs 11/26/17 16:00 11/26/17 19:30 11/26/17 20:02 Temperature 100 F H Pulse Rate 103 H 113 H 113 H Respiratory Rate 20 Blood Pressure 135/63 Pulse Oximetry 96 11/26/17 22:20 11/26/17 22:45 11/26/17 22:50 Temperature 99.8 F H Pulse Rate 117 H 155 H 134 H Respiratory Rate 28 H Blood Pressure 161/82 H Pulse Oximetry 96 11/26/17 23:44 11/27/17 00:02 11/27/17 02:42 Temperature Pulse Rate 126 H 121 H 101 H Respiratory Rate 20 Blood Pressure Pulse Oximetry 11/27/17 04:08 11/27/17 04:49 11/27/17 08:00 Temperature 98.1 F 97.7 F Pulse Rate 96 H 102 H 116 H Respiratory Rate 18 18 Blood Pressure 122/64 140/77 Pulse Oximetry 96 96 11/27/17 12:00 Temperature 98.5 F Pulse Rate 108 H Respiratory Rate 18 Blood Pressure 148/67 H Pulse Oximetry 98 Intake & Output 11/26/17 11/27/17 11/27/17 18:59 06:59 18:59 Intake Total 2350 / 2350 1240 / 1240 1150 / 1150 Output Total 1100 / 1100 350 / 350 Balance 1250 / 1250 890 / 890 1150 / 1150 Weight 62.2 kg Intake: IV 1150 / 1150 1000 / 1000 1150 / 1150 D5W/Normal Saline Inj 1,000 ML 1000 / 1000 1000 / 1000 1000 / 1000 @ 100 mls/hr IV.CONT .Q10H [facility] Rx#:[id number] Levaquin 750 mg Premix Inj 150 150 / 150 150 / 150 ML @ 100 mls/hr IV.SIG Q24H [facility] Rx#:[id number] Oral 1200 / 1200 240 / 240 Output: Urine 1100 / 1100 350 / 350 Other: Date of Last Bowel Movement 11/25/17 11/25/17 Narrative: General: NAD. HEENT: extraocular movements are intact, clear oropharyngeal mucosa. Cardiovascular: S1-S2 audible, RRR, no murmurs rubs or gallops. Respiratory: poor inspiratory effort, scattered rhonchi. Abdomen: soft, nontender, nondistended, normal bowel sounds. Extremities: no edema. Neuro: patient moves all 4 extremities, sensation is intact bilaterally. Results - Labs CBC & Chem 7: 11/27/17 05:46 11/27/17 05:46 Laboratory Results - last 24 hr 11/26/17 11/27/17 11/27/17 23:40 05:46 05:46 WBC 7.8 RBC 2.79 L Hgb 8.8 L Hct 26.1 L MCV 93.5 MCH 31.6 MCHC 33.8 RDW 13.0 Plt Count 310 MPV 6.2 L Neut % (Auto) 95.3 H Lymph % (Auto) 2.7 L [place] % (Auto) 1.7 Eos % (Auto) 0.1 Baso % (Auto) 0.2 Neut # (Auto) 7.5 Lymph # (Auto) 0.2 L [place] # (Auto) 0.1 Eos # (Auto) 0.0 Baso # (Auto) 0.0 WBC Differential . Differential Comment Auto diff final Puncture Site Right radial Patient Temperature 98.6 O2 Saturation 89 L* ABG pH 7.45 H ABG pCO2 32 L ABG pO2 58 L* ABG HCO3 22 ABG O2 Content 11.0 L ABG Base Excess -1.6 ABG Methemoglobin 1.4 Aiden Test Present Hemoglobin 8.8 L Carboxyhemoglobin 1.4 Inspired O2 21 Critical Value Yes Sodium 136 Potassium 4.1 Chloride 103 Carbon Dioxide 21.1 Anion Gap 12 BUN 4 L Creatinine 0.92 Estimated GFR 82 L Random Glucose 208 H Calcium 7.8 L Phosphorus 2.7 Magnesium 2.1 Total Bilirubin 0.2 Direct Bilirubin 0.1 Indirect Bilirubin 0.1 AST 16 ALT 18 Alkaline Phosphatase 86 Total Protein 6.1 L D Albumin 2.1 L Microbiology 11/24/17 11:15 Blood - Peripheral Aerobic Blood Culture - Preliminary No growth in 3 days 11/24/17 11:15 Blood - Peripheral Anaerobic Blood Culture - Preliminary No growth in 3 days 11/24/17 11:20 Blood - Peripheral Aerobic Blood Culture - Preliminary No growth in 3 days 11/24/17 11:20 Blood - Peripheral Anaerobic Blood Culture - Preliminary No growth in 3 days 11/24/17 20:20 Sputum - Expectorated Sputum Gram Stain - Final 11/24/17 20:20 Sputum - Expectorated Sputum Sputum Culture - Final Heavy growth normal respiratory alessandro - Imaging Impressions Chest X-Ray 11/26/17 00:00 CONCLUSION: 1. Increased interstitial and airspace opacities in the left upper and left lower lung zone and suspected increased volume of the left pleural effusion. 2. Persistent left upper lobe and right midlung pulmonary nodules suspicious for metastatic disease. Bone Scan Nuclear Medicine 11/27/17 00:00 CONCLUSION: 1. No abnormality observed to suggest metastatic disease to the bone. 2. Subacute left posterior seventh rib fracture. Assessment and Plan - Plan Hemoptysis/ Metastatic prostate cancer/ Weakness This patient is a 67-year-old male with a diagnosis of prostate cancer diagnosed 8 weeks ago status post chemotherapy and radiation in October 2017. He has been having on and off hemoptysis over the past week. CT of the chest suggestive of metastatic disease. CT abdomen with left lobe liver lesions. Bone scan negative. -Oncology consult appreciated. -pt indicated that he does not want further work-up and is interested in hospice. Hospice and case management consults have been placed. -pain control. Low grade fever Possibly s/t post-obstructive pneumonia. Still having low grade fevers at times. -continue IV Levaquin. -follow culture results. NGTD. -oxygen and nebs as needed. Chest pain S/t above. EKG with incomplete RBBB. Troponin was negative. -pain control. -treatment as above. Hyponatremia S/t decreased PO intake. -d/c IVFs. -ADAT. -hold HCTZ. -resolved. Hypertension Well controlled. -He will be continued on lisinopril and metoprolol. -hold HCTZ. PPx: SCDs Discharge Planning: Await further input from hospice. Anticipate d/c in AM.
--- NOTE | 2017-11-27 15:40 | P.PNONC ---
Subjective Interval history: Resting comfortably in bed in no distress. Declines biopsy procedure. Objective Vital Signs/Intake & Output: Vital Signs 11/26/17 16:00 11/26/17 19:30 11/26/17 20:02 Temperature 100 F H Pulse Rate 103 H 113 H 113 H Respiratory Rate 20 Blood Pressure 135/63 Pulse Oximetry 96 11/26/17 22:20 11/26/17 22:45 11/26/17 22:50 Temperature 99.8 F H Pulse Rate 117 H 155 H 134 H Respiratory Rate 28 H Blood Pressure 161/82 H Pulse Oximetry 96 11/26/17 23:44 11/27/17 00:02 11/27/17 02:42 Temperature Pulse Rate 126 H 121 H 101 H Respiratory Rate 20 Blood Pressure Pulse Oximetry 11/27/17 04:08 11/27/17 04:49 11/27/17 08:00 Temperature 98.1 F 97.7 F Pulse Rate 96 H 102 H 116 H Respiratory Rate 18 18 Blood Pressure 122/64 140/77 Pulse Oximetry 96 96 11/27/17 12:00 Temperature 98.5 F Pulse Rate 108 H Respiratory Rate 18 Blood Pressure 148/67 H Pulse Oximetry 98 Intake & Output 11/26/17 11/27/17 11/27/17 18:59 06:59 18:59 Intake Total 2350 / 2350 1240 / 1240 1150 / 1150 Output Total 1100 / 1100 350 / 350 Balance 1250 / 1250 890 / 890 1150 / 1150 Weight 62.2 kg Intake: IV 1150 / 1150 1000 / 1000 1150 / 1150 D5W/Normal Saline Inj 1,000 ML 1000 / 1000 1000 / 1000 1000 / 1000 @ 100 mls/hr IV.CONT .Q10H [facility] Rx#:[id number] Levaquin 750 mg Premix Inj 150 150 / 150 150 / 150 ML @ 100 mls/hr IV.SIG Q24H [facility] Rx#:[id number] Oral 1200 / 1200 240 / 240 Output: Urine 1100 / 1100 350 / 350 Other: Date of Last Bowel Movement 11/25/17 11/25/17 Result Diagrams: 11/27/17 05:46 11/27/17 05:46 Laboratory Results: Laboratory Results - last 24 hr 11/26/17 11/27/17 11/27/17 23:40 05:46 05:46 WBC 7.8 RBC 2.79 L Hgb 8.8 L Hct 26.1 L MCV 93.5 MCH 31.6 MCHC 33.8 RDW 13.0 Plt Count 310 MPV 6.2 L Neut % (Auto) 95.3 H Lymph % (Auto) 2.7 L [place] % (Auto) 1.7 Eos % (Auto) 0.1 Baso % (Auto) 0.2 Neut # (Auto) 7.5 Lymph # (Auto) 0.2 L [place] # (Auto) 0.1 Eos # (Auto) 0.0 Baso # (Auto) 0.0 WBC Differential . Differential Comment Auto diff final Puncture Site Right radial Patient Temperature 98.6 O2 Saturation 89 L* ABG pH 7.45 H ABG pCO2 32 L ABG pO2 58 L* ABG HCO3 22 ABG O2 Content 11.0 L ABG Base Excess -1.6 ABG Methemoglobin 1.4 Aiden Test Present Hemoglobin 8.8 L Carboxyhemoglobin 1.4 Inspired O2 21 Critical Value Yes Sodium 136 Potassium 4.1 Chloride 103 Carbon Dioxide 21.1 Anion Gap 12 BUN 4 L Creatinine 0.92 Estimated GFR 82 L Random Glucose 208 H Calcium 7.8 L Phosphorus 2.7 Magnesium 2.1 Total Bilirubin 0.2 Direct Bilirubin 0.1 Indirect Bilirubin 0.1 AST 16 ALT 18 Alkaline Phosphatase 86 Total Protein 6.1 L D Albumin 2.1 L Culture Results: Microbiology 11/24/17 11:15 Aerobic Blood Culture - Preliminary Blood - Peripheral No growth in 3 days Anaerobic Blood Culture - Preliminary No growth in 3 days 11/24/17 11:20 Aerobic Blood Culture - Preliminary Blood - Peripheral No growth in 3 days Anaerobic Blood Culture - Preliminary No growth in 3 days 11/24/17 20:20 Gram Stain - Final Sputum - Expectorated Sputum Sputum Culture - Final Heavy growth normal respiratory alessandro 11/24/17 11:16 Influenza Types A,B Antigen - Final Nasal Aspirate Negative for FLU A and B antigen Infection due to influenza A or B cannot be ruled out since the antigen present in the sample may be below the detection limit of the test. Imaging Studies: Impressions Chest X-Ray 11/26/17 00:00 CONCLUSION: 1. Increased interstitial and airspace opacities in the left upper and left lower lung zone and suspected increased volume of the left pleural effusion. 2. Persistent left upper lobe and right midlung pulmonary nodules suspicious for metastatic disease. Bone Scan Nuclear Medicine 11/27/17 00:00 CONCLUSION: 1. No abnormality observed to suggest metastatic disease to the bone. 2. Subacute left posterior seventh rib fracture. Medications: Active Medications Generic Name Dose Route Start Last Admin Trade Name Freq PRN Reason Stop Dose Admin Acetaminophen/Codeine Phosphate 1 tab 11/26/17 10:21 11/27/17 01:32 Tylenol W/Cod #3 PO 1 tab Q4H PRN Administration Pain 3-5 Acetaminophen/Codeine Phosphate 2 tab 11/26/17 10:21 11/26/17 11:49 Tylenol W/Cod #3 PO 2 tab Q4H PRN Administration Pain 6-10 Dextrose/Sodium Chloride 1,000 mls @ 100 mls/hr 11/24/17 17:30 11/27/17 09:43 D5w/Normal Saline Inj IV.CONT 100 mls/hr .Q10H [facility] Administration Levofloxacin/Dextrose 150 mls @ 100 mls/hr 11/25/17 10:00 11/27/17 12:28 Levaquin 750 Mg Premix Inj IV.SIG Infused Q24H [facility] Infusion Lisinopril 5 mg 11/24/17 17:15 11/27/17 09:42 Prinivil PO 5 mg DAILY [facility] Administration Lorazepam 0.5 mg 11/25/17 09:31 11/27/17 09:42 Ativan PO 0.5 mg Q12H PRN Administration ANXIETY Metoprolol Succinate 25 mg 11/24/17 17:15 11/27/17 09:42 Toprol Xl PO 25 mg DAILY [facility] Administration Sodium Chloride 2 ml 11/24/17 21:00 11/27/17 09:42 Ns Flush IV.FLUSH 2 ml BID [facility] Administration Objective Remarks: GENERAL: Well-nourished, well-developed patient. SKIN: Warm and dry. HEAD: Normocephalic. EYES: No scleral icterus. No injection or drainage. RESPIRATORY: No accessory muscle use. GASTROINTESTINAL: Abdomen soft, non-tender, nondistended. MUSCULOSKELETAL: Adequate muscle tone. NEUROLOGICAL: No obvious focal deficit. Awake, alert, and oriented x3. Assessment/Plan - Plan Lung lesions suspicious for metastatic cancer: PSA pending. Long discussion with patient. He reports that he does want to undergo any further invasive procedures. He would like to establish with hospice care at home. He will discuss with hospice team what they are able to provide in terms of medications , care at home and meals. Inpatient oncology service will continue to follow peripherally.
[2017-11-28 04:25] LABS: Free PSA/PSA Ratio 0 ratio
[2017-11-28 04:32] VITALS: O2SAT 98
--- NOTE | 2017-11-28 10:43 | P.DS ---
Date of admission: 11/24/17 16:29 Primary care physician: Keyur Saldana DO Anticipated date of discharge: 11/28/17 Brief History from admission: This patient is a 67-year-old male with a diagnosis of hypertension prostate cancer diagnosed 8 weeks ago status post chemotherapy and radiation in October 2017. The patient also has peripheral arterial disease. He presented to our emergency department today with complaints of exertional dyspnea that has continued to get worse over the past 8 weeks. He also has a a cough with productive sputum. He has also been having on and off hemoptysis over the past week. His symptoms continue to get worse and he came into our emergency department today for evaluation. He has been having difficulty walking and hoarseness of his voice that started a couple of weeks ago. I was called by the emergency department physician to evaluate the patient for admission. A discussion with our oncologist was already made over the phone by the emergency department physician and suggested that we admit the patient. The patient denies any chest pain, no diarrhea, no abdominal pain, no fevers or chills. Past medical history hypertension, peripheral arterial disease, prostate cancer status post chemotherapy and radiation. Prostate cancer was diagnosed 8 weeks ago. Family history significant for breast cancer in his mother. Social history the patient has an extensive tobacco smoking history he is an active tobacco smoker. Allergies no known drug allergies Patient update on day of discharge: The patient's family was at the bedside. The patient was interested in going home with hospice. He would like to talk with a different oncologist about possible treatment options in the future. DS: Diagnosis - Discharge Diagnosis (1) Metastatic neoplastic disease Status: Acute (2) Prostate cancer Status: Acute (3) Dyspnea Status: Acute DS: Summary Hospital Course: Hemoptysis/ Metastatic prostate cancer/ Weakness This patient is a 67-year-old male with a diagnosis of prostate cancer diagnosed 8 weeks ago status post chemotherapy and radiation in October 2017. He has been having on and off hemoptysis over the past week. CT of the chest suggestive of metastatic disease. CT abdomen with left lobe liver lesions. Bone scan negative. Oncology was consulted. A lung biopsy was recommended but the pt indicated that he did not want further work-up. He was interested in going home with hospice. Hospice and case management were consulted. The pt will be discharged with home hospice. He worked with physical therapy. He will be referred to oncology to discuss the possibility of treatment in the future. He received pain control as needed. He also received oxygen and nebs as needed. Low grade fever The pt received IV Levaquin while he was in the hospital. Cultures with NGTD. Chest pain EKG with incomplete RBBB. Troponin was negative. He was treated as above. Hyponatremia We discontinued IVFs and also discontinued his home HCTZ. Resolved. - Time Spent with Patient Total time spent providing and/or coordinating discharge services: Greater than 30 minutes Exam Vital signs: Vital Signs 11/27/17 12:00 11/27/17 16:00 11/27/17 17:22 Temperature 98.5 F 98 F Pulse Rate 108 H 104 H Respiratory Rate 18 18 Blood Pressure 148/67 H 140/77 Pulse Oximetry 98 98 98 11/27/17 20:15 11/27/17 20:50 11/28/17 00:06 Temperature 97.9 F Pulse Rate 98 H 89 84 Respiratory Rate 20 Blood Pressure 131/74 Pulse Oximetry 97 11/28/17 00:37 11/28/17 04:01 11/28/17 04:30 Temperature 97.8 F 97.5 F L Pulse Rate 108 H 85 88 Respiratory Rate 20 20 Blood Pressure 127/72 124/76 Pulse Oximetry 94 L 98 11/28/17 09:12 Temperature Pulse Rate Respiratory Rate Blood Pressure Pulse Oximetry 98 Intake & Output 11/27/17 11/28/17 11/28/17 18:59 06:59 18:59 Intake Total 1150 / 1150 480 / 480 Output Total 200 / 200 825 / 825 Balance 950 / 950 -345 / -345 Weight 63.3 kg Intake: IV 1150 / 1150 D5W/Normal Saline Inj 1,000 ML 1000 / 1000 @ 100 mls/hr IV.CONT .Q10H JULI Rx#:[id number] Levaquin 750 mg Premix Inj 150 150 / 150 ML @ 100 mls/hr IV.SIG Q24H JULI Rx#:[id number] Oral 480 / 480 Output: Urine 200 / 200 825 / 825 Other: Date of Last Bowel Movement 11/27/17 Narrative: General: NAD. HEENT: extraocular movements are intact, clear oropharyngeal mucosa. Cardiovascular: S1-S2 audible, RRR, no murmurs rubs or gallops. Respiratory: poor inspiratory effort, scattered rhonchi. Abdomen: soft, nontender, nondistended, normal bowel sounds. Extremities: no edema. Neuro: patient moves all 4 extremities, sensation is intact bilaterally. Results Procedures completed during hospitalization: None Labs on day of discharge: Labs from last 24 hours 11/24/17 18:58 Free PSA Less than 0.1 Total PSA 0.2 PSA Free/Total Ratio 0 Preliminary micro results at discharge 11/24/17 11:15 Aerobic Blood Culture - Preliminary Blood - Peripheral No growth in 3 days Anaerobic Blood Culture - Preliminary No growth in 3 days 11/24/17 11:20 Aerobic Blood Culture - Preliminary Blood - Peripheral No growth in 3 days Anaerobic Blood Culture - Preliminary No growth in 3 days - Impressions ITS Impressions Abdomen/Pelvis CT 11/24/17 00:00 CONCLUSION: Lung base nodules bilaterally. Left lobe liver lesions. Right adrenal nodule Thyroid Ultrasound 11/24/17 00:00 CONCLUSION: Left thyroid nodules. Chest CTA 11/24/17 13:30 CONCLUSION: 1. Findings would be consistent with widespread metastatic disease, most likely prostate by history. Mass anteriorly in the right lung could easily be biopsied for pathology and origin with minimal risk of pneumothorax. Thoracic Spine MRI 11/25/17 00:00 CONCLUSION: 1. Nonspecific small focal lesions at the T10 body and the right T8 pars interarticularis region. These could represent metastatic lesions. 2. Disc spaces are intact. No significant areas of stenosis is seen. 3. Mild left pleural effusion. Chest X-Ray 11/26/17 00:00 CONCLUSION: 1. Increased interstitial and airspace opacities in the left upper and left lower lung zone and suspected increased volume of the left pleural effusion. 2. Persistent left upper lobe and right midlung pulmonary nodules suspicious for metastatic disease. Bone Scan Nuclear Medicine 11/27/17 00:00 CONCLUSION: 1. No abnormality observed to suggest metastatic disease to the bone. 2. Subacute left posterior seventh rib fracture. Discharge Plan - Discharge Disposition Patient Disposition: 50 Hospice/Home - Discharge Condition Condition: Fair - Discharge Order Discharge Orders: Discharge Order (Routine); Ordered 11/28/17 Ordered By: Anup Briggs - Discharge Details Anticipated Discharge Date: 11/28/17 - Physicians Team Primary Care Provider: Keyur Saldana Attending Provider: Anup Briggs Other Providers: Yazmin Braga
[2017-11-28] MEDS: Lisinopril 5 MG Tablet PO SCH (11:18)
[2017-11-28] MEDS: Sodium Chloride 0.9% 2 ML Flush BID IV.FLUSH SCH (11:19)
[2017-11-28] MEDS ORDERED: Influenza (Quadrivalent) Vaccine 0.5 ML Syringe IM ONE (13:00)
[2017-11-28 13:41] VITALS: PULSE 107; RESP 18
[2017-11-28 14:24] VITALS: BP 154/70; TEMP 97.6
== END 2017-11-28 15:11 | disposition hospice, home (50) ==
LOC: NEPC 10:39 → NEDA 16:29 → HCIN 18:06
PROVIDERS: ADMIT Hospitalist; ATTEND Hospitalist